=== PATIENT | male | born 1960 | race African-American/Black ===

== ENCOUNTER 2016-08-16 08:17 | Emergency (ER) | payer MEDICAID, OTHER ==
[~2016-08-16] VITALS: Ht 177.8 cm; Wt 67.4 kg
[2016-08-16] MEDS ORDERED: MAALOX/HYOSCYAMINE/LIDOCAINE 45 ML BOTTLE PO ONE (09:30)
[2016-08-16] MEDS ORDERED: SODIUM CHLORIDE 0.9% 1,000ML IVBOLUS ONE (09:30)
[2016-08-16] MEDS ORDERED: METOCLOPRAMIDE 5 MG/ML, 2ML IVPush ONE (09:30)
[2016-08-16] MEDS ORDERED: FAMOTIDINE 20 MG/2 ML IVP ONE (09:30)
[2016-08-16] MEDS ORDERED: DIPHENHYDRAMINE 50 MG/ML, 1ML IVPush ONE (09:30)
[2016-08-16] MEDS ORDERED: SODIUM CHLORIDE FLUSH 10ML SYR IVF ONE (09:30)
[2016-08-16] MEDS ORDERED: MORPHINE SULFATE 4 MG/ML, 1ML IVPush PRN (09:30)
[2016-08-16] MEDS ORDERED: METOCLOPRAMIDE 5 MG/ML, 2ML ONE (09:32)
[2016-08-16] MEDS ORDERED: MORPHINE SULFATE 4 MG/ML, 1ML ONE (09:32)
[2016-08-16] MEDS ORDERED: FAMOTIDINE 20 MG/2 ML ONE (09:32)
[2016-08-16] MEDS ORDERED: MAALOX/HYOSCYAMINE/LIDOCAINE 45 ML BOTTLE ONE (09:32)
[2016-08-16] MEDS ORDERED: DIPHENHYDRAMINE 50 MG/ML, 1ML ONE (09:32)
[2016-08-16 10:01] LABS: ASPARTATE AMINO TRANSFERASE 12 U/L (15-37); BLOOD UREA NITROGEN 18 mg/dL (7-18)
[2016-08-16 10:07] LABS: IS PT STATUS REG ER OR PRE ER? YES
[2016-08-16 10:57] VITALS: BP 136/95
== END 2016-08-16 11:00 | disposition home or self-care (01) ==
LOC: ED 10:23
DX: K25.7 Chronic gastric ulcer without hemorrhage or perforation (principal); K29.00 Acute gastritis without bleeding; I10 Essential (primary) hypertension
CPT/HCPCS: 36415; 80053; 83690; 84484; 85025; 93005; 96374; 96375; 99285; J1200; J2765; J7030; S0028

== ENCOUNTER 2017-08-30 09:23 | Inpatient (IN) | payer MEDICAID ==
[~2017-08-30] VITALS: Ht 177.8 cm; Wt 62.7 kg
[2017-08-30] MEDS ORDERED: PANTOPRAZOLE 80 MG in SODIUM CHLORIDE 0.9% 50 ML IVPB ONE (09:34)
[2017-08-30] MEDS ORDERED: OCTREOTIDE 500 MCG in SODIUM CHLORIDE 0.9% 249 ML IV PRN (09:34)
[2017-08-30] MEDS ORDERED: PANTOPRAZOLE 80 MG in SODIUM CHLORIDE 0.9% 100 ML IV SCH (09:34)
[2017-08-30] MEDS ORDERED: METOCLOPRAMIDE 5 MG/ML, 2ML ONE (09:57)
[2017-08-30] MEDS ORDERED: OCTREOTIDE 100MCG/ML, 1ML (0.1MG/ML) IV ONE (10:00)
[2017-08-30] MEDS ORDERED: SODIUM CHLORIDE 0.9% 1,000ML IVBOLUS ONE (10:00)
[2017-08-30] MEDS ORDERED: PLEASE ENTER HEIGHT AND WEIGHT MC SCH (10:00)
[2017-08-30] MEDS ORDERED: CEFTRIAXONE PMX 1GM/50ML 50 ML IV ONE (10:00)
[2017-08-30] MEDS ORDERED: METOCLOPRAMIDE 5 MG/ML, 2ML IVPush ONE (10:00)
[2017-08-30] MEDS ORDERED: SODIUM CHLORIDE FLUSH 10ML SYR IVF ONE ×2 (10:00)
[2017-08-30] MEDS ORDERED: CEFTRIAXONE PMX 1GM/50ML 50 ML ONE (10:03)
[2017-08-30] MEDS ORDERED: HYDROmorphone 2 MG/ML, 1ML ONE (10:04)
[2017-08-30] MEDS: HYDROmorphone 1 MG/ML, 1ML IVPush PRN ×2 (10:13→11:09)
[2017-08-30 10:18] LABS: BASOPHILS # (AUTO) 0.03 x10^3/uL (0-0.1); BASOPHILS % (AUTO) 0 % (0-1); EOSINOPHILS % (AUTO) 0 % (1-7); LYMPHOCYTES # (AUTO) 0.68 x10^3/uL (1-3.4); LYMPHOCYTES % (AUTO) 5 % (22-44); MD NO; MEAN CORPUSCULAR HEMOGLOBIN 31.4 pg (27.5-34.5); MEAN CORPUSCULAR HGB CONC 33.1 g/dL (33.2-36.2); MEAN CORPUSCULAR VOLUME 94.8 fL (81-97); MEAN PLATELET VOLUME 7.6 fL (7.4-10.4); MONOCYTES # (AUTO) 0.54 x10^3/uL (0.2-0.8); MONOCYTES % (AUTO) 4 % (2-9); NEUTROPHILS # (AUTO) 13.74 x10^3/uL (1.8-6.8); NEUTROPHILS % (AUTO) 92 % (42-75); PLATELET COUNT 382 x10^3/uL (130-400); RED BLOOD COUNT 4.53 x10^6/uL (4.38-5.82); RED CELL DISTRIBUTION WIDTH 14.4 % (9.4-14.8)
[2017-08-30 10:27] LABS: INTERNATIONAL NORMALIZED RATIO 1.09 (0.93-1.1); PROTHROMBIN TIME 11.2 Seconds (9.6-11.5)
[2017-08-30 10:30] LABS: ALANINE AMINOTRANSFERASE 15 U/L (12-78); ALBUMIN 2.8 g/dL (3.4-5.0); ANION GAP 9 mmol/L (5-15); CALCIUM 8.9 mg/dL (8.5-10.1); CHLORIDE 101 mmol/L (98-107); CREATININE 1.41 mg/dL (0.7-1.3)
[2017-08-30 10:33] LABS: ALKALINE PHOSPHATASE 65 U/L (45-117); BILIRUBIN,TOTAL 1.4 mg/dL (0.2-1.0); TOTAL PROTEIN 6.6 g/dL (6.4-8.2)
[2017-08-30 10:54] LABS: TROPONIN I < 0.015 ng/mL (0.000-0.045)
[2017-08-30] MEDS ORDERED: LABETALOL 5MG/ML, 20ML IVPush ONE (11:00)
[2017-08-30] MEDS ORDERED: LABETALOL 5MG/ML, 20ML ONE (11:10)
[2017-08-30] MEDS ORDERED: OCTREOTIDE 100MCG/ML, 1ML (0.1MG/ML) ONE (11:39)
[2017-08-30] MEDS ORDERED: hydrALAzine 20 MG/ML, 1ML IVPush PRN (13:00)
[2017-08-30] MEDS ORDERED: ACETAMINOPHEN 325 MG TABLET PO PRN (13:00)
[2017-08-30] MEDS: PANTOPRAZOLE 80 MG in SODIUM CHLORIDE 0.9% 100 ML IV SCH ×2 (13:00→21:58)
[2017-08-30] MEDS ORDERED: morphine SULFATE 10 MG/ML, 1ML IVPush PRN (13:00)
[2017-08-30] MEDS ORDERED: PROCHLORPERAZINE 5 MG/ML, 2ML IV PRN (13:30)
[2017-08-30 13:38] VITALS: BP_SYST 153; BP_SYST 168; BP_DIAS 110; BP_DIAS 111
[2017-08-30] MEDS: NICOTINE 14MG/24 HR PATCH.TD24 TD SCH (13:41)
[2017-08-30 15:12] VITALS: BP 145/102
[2017-08-30] MEDS: SODIUM CHLORIDE 0.9% 1,000 ML IV SCH ×2 (15:13→21:58)
[2017-08-30 18:15] LABS: MICROSCOPIC AUTO
[2017-08-30 18:17] LABS: CULTURE INDICATED? NO
[2017-08-30 18:21] LABS: AMPHETAMINE SCREEN, URINE Positive (Negative); BARBITURATE SCREEN, URINE Negative (Negative); BENZODIAZEPINE SCREEN, URINE Negative (Negative); CANNABINOID SCREEN, URINE Positive (Negative); COCAINE SCREEN, URINE Negative (Negative); METHADONE SCREEN, URINE Negative (Negative); OPIATE SCREEN, URINE Positive (Negative)
[2017-08-30 20:05] VITALS: BP 148/96
[2017-08-31 00:31] VITALS: BP 127/82
[2017-08-31] MEDS: SODIUM CHLORIDE 0.9% 1,000 ML IV SCH ×3 (05:30→22:05)
[2017-08-31 05:50] LABS: ANION GAP 7 mmol/L (5-15); CALCIUM 8.2 mg/dL (8.5-10.1); CHLORIDE 110 mmol/L (98-107); CREATININE 0.99 mg/dL (0.7-1.3)
[2017-08-31 07:06] VITALS: BP 123/81
[2017-08-31 08:13] LABS: CREATININE,URINE RANDOM 81.7 mg/dL
[2017-08-31] MEDS: PANTOPRAZOLE 40 MG IV IVPush SCH ×2 (08:36→22:04)
[2017-08-31 09:54] LABS: BASOPHILS # (AUTO) 0.05 x10^3/uL (0-0.1); BASOPHILS % (AUTO) 1 % (0-1); EOSINOPHILS # (AUTO) 0.01 x10^3/uL (0-0.4); EOSINOPHILS % (AUTO) 0 % (1-7); LYMPHOCYTES # (AUTO) 1.26 x10^3/uL (1-3.4); LYMPHOCYTES % (AUTO) 13 % (22-44); MD NO; MEAN CORPUSCULAR HEMOGLOBIN 32.3 pg (27.5-34.5); MEAN CORPUSCULAR HGB CONC 33.1 g/dL (33.2-36.2); MEAN CORPUSCULAR VOLUME 97.6 fL (81-97); MEAN PLATELET VOLUME 8.1 fL (7.4-10.4); MONOCYTES # (AUTO) 0.75 x10^3/uL (0.2-0.8); MONOCYTES % (AUTO) 8 % (2-9); NEUTROPHILS # (AUTO) 7.78 x10^3/uL (1.8-6.8); NEUTROPHILS % (AUTO) 79 % (42-75); PLATELET COUNT 317 x10^3/uL (130-400); RED BLOOD COUNT 3.54 x10^6/uL (4.38-5.82); RED CELL DISTRIBUTION WIDTH 14.6 % (9.4-14.8)
[2017-08-31 12:43] VITALS: BP 128/80
[2017-08-31] MEDS: NICOTINE 14MG/24 HR PATCH.TD24 TD SCH (14:53)
[2017-08-31 20:01] VITALS: BP 108/75
[2017-09-01 02:02] VITALS: BP 127/74
[2017-09-01 05:31] LABS: BASOPHILS # (AUTO) 0.04 x10^3/uL (0-0.1); BASOPHILS % (AUTO) 1 % (0-1); EOSINOPHILS # (AUTO) 0.11 x10^3/uL (0-0.4); EOSINOPHILS % (AUTO) 2 % (1-7); LYMPHOCYTES # (AUTO) 1.36 x10^3/uL (1-3.4); LYMPHOCYTES % (AUTO) 19 % (22-44); MD NO; MEAN PLATELET VOLUME 7.5 fL (7.4-10.4); MONOCYTES # (AUTO) 0.78 x10^3/uL (0.2-0.8); MONOCYTES % (AUTO) 11 % (2-9); NEUTROPHILS # (AUTO) 4.87 x10^3/uL (1.8-6.8); NEUTROPHILS % (AUTO) 68 % (42-75); PLATELET COUNT 241 x10^3/uL (130-400); RED BLOOD COUNT 2.66 x10^6/uL (4.38-5.82)
[2017-09-01 05:33] LABS: ALBUMIN 2.1 g/dL (3.4-5.0); ANION GAP 5 mmol/L (5-15); CALCIUM 8.1 mg/dL (8.5-10.1); CHLORIDE 113 mmol/L (98-107); CREATININE 0.82 mg/dL (0.7-1.3)
[2017-09-01 07:07] VITALS: BP 131/75
[2017-09-01] MEDS ORDERED: FENTANYL PF 100 MCG/2ML ONE (08:01)
[2017-09-01] MEDS ORDERED: MIDAZOLAM 1 MG/ML, 5ML ONE (08:01)
[2017-09-01] MEDS: SODIUM CHLORIDE 0.9% 1,000 ML IV SCH (09:46)
[2017-09-01] MEDS: PANTOPRAZOLE 40 MG IV IVPush SCH (11:01)
[2017-09-01 19:06] VITALS: BP 120/69
== END 2017-09-01 11:15 | disposition left against medical advice (07) | DRG 377 ==
LOC: ED 12:04 → EDIP 12:05 → ED 12:09 → 4EST 13:11 → UNDODISIN 09-01 11:20
PROVIDERS: ADMIT Internal Medicine; ATTEND Internal Medicine
PROC: 0DJ08ZZ Inspection of Upper Intestinal Tract, Via Natural or Artificial Opening Endoscopic (ICD-10-PCS; principal; 2017-09-01 08:00)
DX: K26.4 Chronic or unspecified duodenal ulcer with hemorrhage (principal); N17.0 Acute kidney failure with tubular necrosis; D62 Acute posthemorrhagic anemia; K29.01 Acute gastritis with bleeding; E88.09 Other disorders of plasma-protein metabolism, not elsewhere classified; K22.2 Esophageal obstruction; E86.9 Volume depletion, unspecified; D18.03 Hemangioma of intra-abdominal structures; D72.829 Elevated white blood cell count, unspecified; K44.9 Diaphragmatic hernia without obstruction or gangrene; F10.21 Alcohol dependence, in remission; F12.90 Cannabis use, unspecified, uncomplicated; I10 Essential (primary) hypertension; K21.0 Gastro-esophageal reflux disease with esophagitis; K59.09 Other constipation; Z59.0 Homelessness; Z86.19 Personal history of other infectious and parasitic diseases; Z87.11 Personal history of peptic ulcer disease; Z91.19 Patient's noncompliance with other medical treatment and regimen
CPT/HCPCS: 36415; 71045; 76700; 80048; 80053; 80307; 81001; 82040; 82570; 83690; 84156; 84443; 84484; 85014; 85018; 85025; 85610; 85730; 86850; 86900; 87040; 93005; 96374; 96375; 96376; J0696; J1170; J2250; J2354; J3010; C9113; J0360; J2270; J2765; J7030; J7050

== ENCOUNTER 2017-09-01 12:56 | Inpatient (IN) | payer MEDICAID ==
[~2017-09-01] VITALS: Ht 180.3 cm; Wt 66.8 kg
[2017-09-01] VITALS (11 sets, daily range): BP systolic 92–134; BP diastolic 57–83
[2017-09-01] MEDS ORDERED: PANTOPRAZOLE 80 MG in SODIUM CHLORIDE 0.9% 100 ML IV SCH (13:18)
[2017-09-01] MEDS ORDERED: SODIUM CHLORIDE 0.9% 1,000 ML IV ONE (13:18)
[2017-09-01] MEDS ORDERED: PANTOPRAZOLE 80 MG in SODIUM CHLORIDE 0.9% 50 ML IVPB ONE (13:18)
[2017-09-01] MEDS ORDERED: SODIUM CHLORIDE FLUSH 10ML SYR IVF ONE (13:30)
[2017-09-01 13:58] LABS: BASOPHILS # (AUTO) 0.02 x10^3/uL (0-0.1); BASOPHILS % (AUTO) 0 % (0-1); EOSINOPHILS # (AUTO) 0.05 x10^3/uL (0-0.4); EOSINOPHILS % (AUTO) 1 % (1-7); LYMPHOCYTES # (AUTO) 1.54 x10^3/uL (1-3.4); LYMPHOCYTES % (AUTO) 18 % (22-44); MD NO; MEAN CORPUSCULAR HEMOGLOBIN 31.9 pg (27.5-34.5); MEAN CORPUSCULAR HGB CONC 32.5 g/dL (33.2-36.2); MEAN CORPUSCULAR VOLUME 98.1 fL (81-97); MEAN PLATELET VOLUME 7.9 fL (7.4-10.4); MONOCYTES # (AUTO) 0.81 x10^3/uL (0.2-0.8); MONOCYTES % (AUTO) 9 % (2-9); NEUTROPHILS # (AUTO) 6.37 x10^3/uL (1.8-6.8); NEUTROPHILS % (AUTO) 73 % (42-75); PLATELET COUNT 226 x10^3/uL (130-400); RED BLOOD COUNT 2.52 x10^6/uL (4.38-5.82); RED CELL DISTRIBUTION WIDTH 14.8 % (9.4-14.8)
[2017-09-01 14:05] LABS: ALBUMIN 2.3 g/dL (3.4-5.0); ANION GAP 6 mmol/L (5-15); CALCIUM 7.7 mg/dL (8.5-10.1); CHLORIDE 108 mmol/L (98-107); INTERNATIONAL NORMALIZED RATIO 1.02 (0.93-1.1); PROTHROMBIN TIME 10.5 Seconds (9.6-11.5)
[2017-09-01 14:09] LABS: ALANINE AMINOTRANSFERASE 15 U/L (12-78); ALKALINE PHOSPHATASE 47 U/L (45-117); BILIRUBIN,TOTAL 0.9 mg/dL (0.2-1.0); CREATININE 0.81 mg/dL (0.7-1.3); TOTAL PROTEIN 5.1 g/dL (6.4-8.2)
[2017-09-01] MEDS ORDERED: SODIUM CHLORIDE FLUSH 10ML SYR IVF PRN (15:30)
[2017-09-01] MEDS ORDERED: ONDANSETRON ODT 4 MG PO PRN (16:00)
[2017-09-01] MEDS ORDERED: PROMETHAZINE 25 MG/ML, 1ML IM PRN (16:00)
[2017-09-01] MEDS ORDERED: ACETAMINOPHEN 325 MG TABLET PO PRN (16:00)
[2017-09-01 16:08] LABS: % IRON SATURATION 81 % (20-55); IRON LEVEL 179 mcg/dL (65-175); TOTAL IRON BINDING CAPACITY 222 mcg/dL (250-450)
[2017-09-01] MEDS ORDERED: ACETAMINOPHEN 325 MG TABLET PO ONE (20:00)
[2017-09-01] MEDS ORDERED: DIPHENHYDRAMINE 50 MG/ML, 1ML IVPush ONE (20:00)
[2017-09-01] MEDS ORDERED: PANTOPRAZOLE 40 MG IV IVPush SCH (21:00)
[2017-09-01] MEDS ORDERED: HEPARIN 1,000 UNITS/ML, 10ML ONE (21:10)
[2017-09-01] MEDS ORDERED: OMNIPAQUE 350 MG/ML, 100ML BOTTLE ONE (22:34)
[2017-09-01] MEDS: SODIUM CHLORIDE 0.9% 1,000 ML IV SCH (23:21)
[2017-09-02] VITALS (8 sets, daily range): BP systolic 115–138; BP diastolic 63–82
[2017-09-02] MEDS: PANTOPRAZOLE 80 MG in SODIUM CHLORIDE 0.9% 100 ML IV SCH ×3 (01:38→22:06)
[2017-09-02 05:33] LABS: BASOPHILS # (AUTO) 0.03 x10^3/uL (0-0.1); BASOPHILS % (AUTO) 0 % (0-1); EOSINOPHILS # (AUTO) 0.12 x10^3/uL (0-0.4); EOSINOPHILS % (AUTO) 1 % (1-7); LYMPHOCYTES # (AUTO) 1.92 x10^3/uL (1-3.4); LYMPHOCYTES % (AUTO) 22 % (22-44); MD NO; MEAN CORPUSCULAR HEMOGLOBIN 31.1 pg (27.5-34.5); MEAN CORPUSCULAR HGB CONC 33.2 g/dL (33.2-36.2); MEAN CORPUSCULAR VOLUME 93.9 fL (81-97); MEAN PLATELET VOLUME 7.9 fL (7.4-10.4); MONOCYTES # (AUTO) 0.83 x10^3/uL (0.2-0.8); MONOCYTES % (AUTO) 10 % (2-9); NEUTROPHILS # (AUTO) 5.77 x10^3/uL (1.8-6.8); NEUTROPHILS % (AUTO) 67 % (42-75); PLATELET COUNT 204 x10^3/uL (130-400); RED BLOOD COUNT 2.93 x10^6/uL (4.38-5.82); RED CELL DISTRIBUTION WIDTH 17.7 % (9.4-14.8)
[2017-09-02 05:48] LABS: CHLORIDE 111 mmol/L (98-107)
[2017-09-02 06:42] LABS: ANION GAP 11 mmol/L (5-15); CALCIUM 8.3 mg/dL (8.5-10.1); CREATININE 0.87 mg/dL (0.7-1.3)
[2017-09-02] MEDS: LORazepam 2 MG/ML, 1ML IVPush PRN ×2 (07:29→17:41)
[2017-09-02] MEDS: SODIUM CHLORIDE 0.9% 1,000 ML IV SCH ×2 (09:16→19:05)
[2017-09-02] MEDS ORDERED: MAGNESIUM SULFATE PMX 2GM/50ML 50 ML IV ONE (17:00)
[2017-09-02] MEDS ORDERED: SODIUM PHOSPHATE 20 MMOL in SODIUM CHLORIDE 0.9% 500 ML IV ONE (17:00)
[2017-09-02] MEDS ORDERED: LORazepam 2 MG/ML, 1ML IVPush PRN (19:00)
== END 2017-09-03 03:00 | disposition left against medical advice (07) | DRG 377 ==
LOC: ED 15:06 → EDIP 15:07 → ED 15:11 → SUATTDRO 15:36 → 4EST 16:38
PROVIDERS: ADMIT Hospitalist; ATTEND Hospitalist
PROC: 30233N1 Transfusion of Nonautologous Red Blood Cells into Peripheral Vein, Percutaneous Approach (ICD-10-PCS; principal; 2017-09-01)
DX: K26.4 Chronic or unspecified duodenal ulcer with hemorrhage (principal); E43 Unspecified severe protein-calorie malnutrition; D62 Acute posthemorrhagic anemia; F17.210 Nicotine dependence, cigarettes, uncomplicated; I10 Essential (primary) hypertension; K20.9 Esophagitis, unspecified; K22.2 Esophageal obstruction; Z68.20 Body mass index [BMI] 20.0-20.9, adult
CPT/HCPCS: 36415; 36430; 74174; 78278; 80048; 80053; 83540; 83550; 83690; 83735; 84100; 85014; 85018; 85025; 85610; 85730; 86850; 86900; 86923; 87338; 93005; 96374; 96375; J1644; Q9967; A9560; C9113; C9898; J1200; J2060; J3475; J7030; J7040; P9016

== ENCOUNTER 2017-09-09 00:05 | Inpatient (IN) | payer MEDICAID ==
[2017-09-09] VITALS (14 sets, daily range): BP systolic 117–156; BP diastolic 79–99
[~2017-09-09] VITALS: Ht 177.8 cm; Wt 66.3 kg
[2017-09-09] MEDS ORDERED: MORPHINE SULFATE 4 MG/ML, 1ML IVPush PRN (02:00)
[2017-09-09] MEDS ORDERED: PROMETHAZINE 25 MG/ML, 1ML IM ONE (02:00)
[2017-09-09] MEDS ORDERED: FAMOTIDINE 20 MG/2 ML IVP ONE (02:00)
[2017-09-09] MEDS ORDERED: SODIUM CHLORIDE FLUSH 10ML SYR IVF ONE (02:00)
[2017-09-09] MEDS ORDERED: PROMETHAZINE 25 MG/ML, 1ML ONE (02:09)
[2017-09-09] MEDS ORDERED: FAMOTIDINE 20 MG/2 ML ONE (02:10)
[2017-09-09] MEDS ORDERED: MORPHINE SULFATE 4 MG/ML, 1ML ONE ×2 (02:10→07:24)
[2017-09-09 02:17] LABS: ALANINE AMINOTRANSFERASE 20 U/L (12-78); ALBUMIN 2.7 g/dL (3.4-5.0); ANION GAP 8 mmol/L (5-15); CALCIUM 9.1 mg/dL (8.5-10.1); CHLORIDE 101 mmol/L (98-107); CREATININE 0.84 mg/dL (0.7-1.3)
[2017-09-09 02:19] LABS: ALKALINE PHOSPHATASE 57 U/L (45-117); BILIRUBIN,TOTAL 0.5 mg/dL (0.2-1.0); TOTAL PROTEIN 6.3 g/dL (6.4-8.2)
[2017-09-09 02:50] LABS: BASOPHILS # (AUTO) 0.09 x10^3/uL (0-0.1); BASOPHILS % (AUTO) 1 % (0-1); EOSINOPHILS # (AUTO) 0.04 x10^3/uL (0-0.4); EOSINOPHILS % (AUTO) 1 % (1-7); LYMPHOCYTES # (AUTO) 1.03 x10^3/uL (1-3.4); LYMPHOCYTES % (AUTO) 11 % (22-44); MD NO; MEAN CORPUSCULAR HGB CONC 32.4 g/dL (33.2-36.2); MEAN CORPUSCULAR VOLUME 95.5 fL (81-97); MONOCYTES % (AUTO) 9 % (2-9); NEUTROPHILS # (AUTO) 7.08 x10^3/uL (1.8-6.8); NEUTROPHILS % (AUTO) 78 % (42-75); PLATELET COUNT 520 x10^3/uL (130-400); RED BLOOD COUNT 1.94 x10^6/uL (4.38-5.82); RED CELL DISTRIBUTION WIDTH 19.1 % (9.4-14.8)
[2017-09-09] MEDS ORDERED: PANTOPRAZOLE 80 MG in SODIUM CHLORIDE 0.9% 100 ML IV SCH ×2 (02:55→04:30)
[2017-09-09] MEDS ORDERED: PANTOPRAZOLE 80 MG in SODIUM CHLORIDE 0.9% 50 ML IVPB ONE (02:55)
[2017-09-09] MEDS ORDERED: ONDANSETRON 2MG/ML, 2ML IVPush PRN (04:30)
[2017-09-09] MEDS ORDERED: morphine SULFATE 10 MG/ML, 1ML IVPush PRN (07:30)
[2017-09-09] MEDS: SODIUM CHLORIDE 0.9% 1,000 ML IV SCH ×2 (12:34→20:43)
[2017-09-09] MEDS: SUCRALFATE 1 GM/10 ML UDC PO SCH ×2 (16:30→20:44)
[2017-09-09] MEDS: PANTOPRAZOLE 40 MG IV IVPush SCH (16:30)
[2017-09-09] MEDS: morphine SULFATE 10 MG/ML, 1ML IVPush PRN (20:43)
[2017-09-10 01:56] VITALS: BP 125/75
[2017-09-10] MEDS: morphine SULFATE 10 MG/ML, 1ML IVPush PRN ×3 (03:41→21:40)
[2017-09-10] MEDS: PANTOPRAZOLE 40 MG IV IVPush SCH ×2 (03:42→17:49)
[2017-09-10] MEDS: SODIUM CHLORIDE 0.9% 1,000 ML IV SCH (04:50)
[2017-09-10 05:38] LABS: ALANINE AMINOTRANSFERASE 16 U/L (12-78); ALBUMIN 2.1 g/dL (3.4-5.0); ANION GAP 7 mmol/L (5-15); CALCIUM 7.3 mg/dL (8.5-10.1); CHLORIDE 114 mmol/L (98-107); CREATININE 0.83 mg/dL (0.7-1.3)
[2017-09-10 05:40] LABS: ALKALINE PHOSPHATASE 51 U/L (45-117); BASOPHILS # (AUTO) 0.05 x10^3/uL (0-0.1); BASOPHILS % (AUTO) 1 % (0-1); BILIRUBIN,TOTAL 0.6 mg/dL (0.2-1.0); EOSINOPHILS # (AUTO) 0.14 x10^3/uL (0-0.4); EOSINOPHILS % (AUTO) 2 % (1-7); LYMPHOCYTES # (AUTO) 1.78 x10^3/uL (1-3.4); LYMPHOCYTES % (AUTO) 25 % (22-44); MD NO; MEAN CORPUSCULAR HEMOGLOBIN 30.8 pg (27.5-34.5); MEAN CORPUSCULAR HGB CONC 33.1 g/dL (33.2-36.2); MONOCYTES # (AUTO) 1.02 x10^3/uL (0.2-0.8); MONOCYTES % (AUTO) 14 % (2-9); NEUTROPHILS # (AUTO) 4.15 x10^3/uL (1.8-6.8); NEUTROPHILS % (AUTO) 58 % (42-75); PLATELET COUNT 404 x10^3/uL (130-400); RED BLOOD COUNT 2.58 x10^6/uL (4.38-5.82); RED CELL DISTRIBUTION WIDTH 16.7 % (9.4-14.8); TOTAL PROTEIN 4.9 g/dL (6.4-8.2)
[2017-09-10 09:00] VITALS: BP 138/85
[2017-09-10] MEDS: SUCRALFATE 1 GM/10 ML UDC PO SCH ×4 (10:14→21:40)
[2017-09-10] MEDS: AMOXICILLIN 500 MG CAPSULE PO SCH ×2 (10:14→21:40)
[2017-09-10] MEDS: CLARITHROMYCIN 500 MG TABLET PO SCH ×2 (10:14→21:40)
[2017-09-10 15:37] VITALS: BP 149/71
[2017-09-10 19:25] VITALS: BP 140/75
[2017-09-11 01:45] VITALS: BP 148/84
[2017-09-11] MEDS: morphine SULFATE 10 MG/ML, 1ML IVPush PRN (03:21)
[2017-09-11] MEDS: PANTOPRAZOLE 40 MG IV IVPush SCH (04:59)
[2017-09-11 05:49] LABS: BASOPHILS # (AUTO) 0.01 x10^3/uL (0-0.1); BASOPHILS % (AUTO) 0 % (0-1); EOSINOPHILS # (AUTO) 0.17 x10^3/uL (0-0.4); EOSINOPHILS % (AUTO) 2 % (1-7); LYMPHOCYTES % (AUTO) 12 % (22-44); MD NO; MEAN CORPUSCULAR HEMOGLOBIN 30.6 pg (27.5-34.5); MEAN CORPUSCULAR VOLUME 92.8 fL (81-97); MEAN PLATELET VOLUME 6.9 fL (7.4-10.4); MONOCYTES # (AUTO) 1.16 x10^3/uL (0.2-0.8); MONOCYTES % (AUTO) 10 % (2-9); NEUTROPHILS % (AUTO) 76 % (42-75); PLATELET COUNT 417 x10^3/uL (130-400); RED BLOOD COUNT 2.44 x10^6/uL (4.38-5.82); RED CELL DISTRIBUTION WIDTH 16.6 % (9.4-14.8)
[2017-09-11] MEDS ORDERED: ACETAMINOPHEN 325 MG TABLET PO PRN (07:30)
[2017-09-11] MEDS ORDERED: MAALOX/HYOSCYAMINE/LIDOCAINE 45 ML BTL PO PRN (07:30)
[2017-09-11 07:41] VITALS: BP 129/83
[2017-09-11] MEDS: CLARITHROMYCIN 500 MG TABLET PO SCH (09:37)
[2017-09-11] MEDS: AMOXICILLIN 500 MG CAPSULE PO SCH (09:37)
[2017-09-11] MEDS: SUCRALFATE 1 GM/10 ML UDC PO SCH ×2 (09:37→11:00)
[2017-09-11] MEDS ORDERED: AMOX-291 PO (11:47)
[2017-09-11] MEDS ORDERED: PANT40TA3 PO (11:47)
[2017-09-11] MEDS ORDERED: SUCR1ORA5 PO (11:47)
[2017-09-11] MEDS ORDERED: CLAR500T PO (11:47)
== END 2017-09-11 12:33 | disposition left against medical advice (07) | DRG 811 ==
LOC: ED 01:50 → EDIP 03:00 → 4EST 04:00
PROVIDERS: ADMIT Hospitalist; ATTEND Hospitalist
PROC: 30233N1 Transfusion of Nonautologous Red Blood Cells into Peripheral Vein, Percutaneous Approach (ICD-10-PCS; principal; 2017-09-09)
DX: D62 Acute posthemorrhagic anemia (principal); E43 Unspecified severe protein-calorie malnutrition; K27.4 Chronic or unspecified peptic ulcer, site unspecified, with hemorrhage; B96.81 Helicobacter pylori [H. pylori] as the cause of diseases classified elsewhere; I10 Essential (primary) hypertension; Z87.11 Personal history of peptic ulcer disease; Z91.19 Patient's noncompliance with other medical treatment and regimen; Z87.891 Personal history of nicotine dependence; Z68.21 Body mass index [BMI] 21.0-21.9, adult; K20.9 Esophagitis, unspecified; K22.2 Esophageal obstruction
CPT/HCPCS: 36415; 36430; 80053; 83690; 83735; 84100; 85014; 85018; 85025; 86850; 86900; 86923; 93005; 96372; 96374; 96375; J2550; C9113; J2270; J7030; P9016; S0028

== ENCOUNTER 2017-10-21 08:40 | Emergency (ER) | payer MEDICAID ==
[~2017-10-21] VITALS: Ht 177.8 cm; Wt 61.5 kg
[~2017-10-21 08:40] MED LIST: AMOX-291 PO; CLAR500T PO; PANT40TA3 PO; SUCR1ORA5 PO
[2017-10-21] MEDS ORDERED: MORPHINE SULFATE 4 MG/ML, 1ML IVPush PRN (09:00)
[2017-10-21] MEDS ORDERED: SODIUM CHLORIDE FLUSH 10ML SYR IVF ONE (09:00)
[2017-10-21] MEDS ORDERED: MAALOX/HYOSCYAMINE/LIDOCAINE 45 ML BTL PO ONE (09:00)
[2017-10-21] MEDS ORDERED: PANTOPRAZOLE 40 MG IV IVPush ONE (09:00)
[2017-10-21] MEDS ORDERED: SODIUM CHLORIDE 0.9% 1,000ML IVBOLUS ONE (09:00)
[2017-10-21] MEDS ORDERED: MAALOX/HYOSCYAMINE/LIDOCAINE 45 ML BTL ONE (09:14)
[2017-10-21] MEDS ORDERED: MORPHINE SULFATE 4 MG/ML, 1ML ONE (09:14)
[2017-10-21] MEDS ORDERED: PANTOPRAZOLE 40 MG IV ONE (09:14)
[2017-10-21 09:22] LABS: MEAN CORPUSCULAR HEMOGLOBIN 25.7 pg (27.5-34.5); MEAN CORPUSCULAR HGB CONC 31.2 g/dL (33.2-36.2); MEAN CORPUSCULAR VOLUME 82.5 fL (81-97); MEAN PLATELET VOLUME 7.6 fL (7.4-10.4); PLATELET COUNT 493 x10^3/uL (130-400); RED BLOOD COUNT 4.55 x10^6/uL (4.38-5.82); RED CELL DISTRIBUTION WIDTH 22.2 % (9.4-14.8)
[2017-10-21] MEDS ORDERED: METOCLOPRAMIDE 5 MG/ML, 2ML IVPush ONE (09:30)
[2017-10-21] MEDS ORDERED: DIPHENHYDRAMINE 50 MG/ML, 1ML IVPush ONE (09:30)
[2017-10-21] MEDS ORDERED: METOCLOPRAMIDE 5 MG/ML, 2ML ONE (09:31)
[2017-10-21] MEDS ORDERED: DIPHENHYDRAMINE 50 MG/ML, 1ML ONE (09:31)
[2017-10-21 09:33] LABS: ALBUMIN 3.2 g/dL (3.4-5.0); ANION GAP 8 mmol/L (5-15); CALCIUM 9.5 mg/dL (8.5-10.1); CHLORIDE 104 mmol/L (98-107)
[2017-10-21 09:37] LABS: ALANINE AMINOTRANSFERASE 17 U/L (12-78); ALKALINE PHOSPHATASE 76 U/L (45-117); BILIRUBIN,TOTAL 0.5 mg/dL (0.2-1.0); CREATININE 1.22 mg/dL (0.7-1.3); TOTAL PROTEIN 7.6 g/dL (6.4-8.2)
[2017-10-21 09:44] LABS: BASOPHILS # (AUTO) 0.02 x10^3/uL (0-0.1); BASOPHILS % (AUTO) 0 % (0-1); EOSINOPHILS # (AUTO) 0.01 x10^3/uL (0-0.4); EOSINOPHILS % (AUTO) 0 % (1-7); LYMPHOCYTES # (AUTO) 0.82 x10^3/uL (1-3.4); LYMPHOCYTES % (AUTO) 6 % (22-44); MD SCAN; MONOCYTES # (AUTO) 0.63 x10^3/uL (0.2-0.8); MONOCYTES % (AUTO) 5 % (2-9); NEUTROPHILS # (AUTO) 12.56 x10^3/uL (1.8-6.8); NEUTROPHILS % (AUTO) 90 % (42-75)
[2017-10-21 12:50] VITALS: BP 160/107
== END 2017-10-21 12:57 | disposition home or self-care (01) ==
LOC: ED 12:51
DX: K29.20 Alcoholic gastritis without bleeding (principal); F10.10 Alcohol abuse, uncomplicated; K29.00 Acute gastritis without bleeding; B96.81 Helicobacter pylori [H. pylori] as the cause of diseases classified elsewhere; I10 Essential (primary) hypertension; Z91.14 Patient's other noncompliance with medication regimen
CPT/HCPCS: 36415; 80053; 83690; 85025; 96361; 96374; 96375; 99284; C9113; J1200; J2765; J7030

== ENCOUNTER 2017-11-01 13:32 | Emergency (ER) | payer MEDICAID ==
[~2017-11-01] VITALS: Ht 175.3 cm; Wt 54.3 kg
[2017-11-01 13:45] VITALS: BP 142/105
[2017-11-01] MEDS ORDERED: MAALOX/HYOSCYAMINE/LIDOCAINE 45 ML BTL ONE (14:21)
[2017-11-01] MEDS ORDERED: OXYcodone/APAP 5/325MG TABLET ONE (14:21)
[2017-11-01] MEDS ORDERED: MAALOX/HYOSCYAMINE/LIDOCAINE 45 ML BTL PO ONE (14:30)
[2017-11-01] MEDS ORDERED: OXYcodone/APAP 5/325MG TABLET PO ONE (14:30)
== END 2017-11-01 14:55 | disposition home or self-care (01) ==
LOC: ED 14:15
DX: R10.13 Epigastric pain (principal); I10 Essential (primary) hypertension; F17.200 Nicotine dependence, unspecified, uncomplicated
CPT/HCPCS: 99283

== ENCOUNTER 2017-11-10 07:26 | Inpatient (IN) | payer MEDICAID ==
[~2017-11-10] VITALS: Ht 172.7 cm; Wt 61.0 kg
[2017-11-10] VITALS (7 sets, daily range): BP systolic 128–171; BP diastolic 84–115
[2017-11-10] MEDS ORDERED: MORPHINE SULFATE 4 MG/ML, 1ML ONE (08:08)
[2017-11-10] MEDS ORDERED: ONDANSETRON 2MG/ML, 2ML ONE (08:08)
[2017-11-10] MEDS ORDERED: SODIUM CHLORIDE 0.9% 1,000ML IVBOLUS ONE (08:30)
[2017-11-10] MEDS ORDERED: SODIUM CHLORIDE FLUSH 10ML SYR IVF ONE (08:30)
[2017-11-10] MEDS ORDERED: MORPHINE SULFATE 4 MG/ML, 1ML IVPush PRN (08:30)
[2017-11-10] MEDS ORDERED: ONDANSETRON 2MG/ML, 2ML IVPush ONE (08:30)
[2017-11-10 08:48] LABS: MEAN CORPUSCULAR HEMOGLOBIN 25.4 pg (27.5-34.5); MEAN CORPUSCULAR HGB CONC 31.4 g/dL (33.2-36.2); MEAN CORPUSCULAR VOLUME 80.9 fL (81-97); MEAN PLATELET VOLUME 6.9 fL (7.4-10.4); PLATELET COUNT 474 x10^3/uL (130-400); RED BLOOD COUNT 4.15 x10^6/uL (4.38-5.82); RED CELL DISTRIBUTION WIDTH 22.3 % (9.4-14.8)
[2017-11-10 08:59] LABS: ALANINE AMINOTRANSFERASE 42 U/L (12-78); ALBUMIN 3.4 g/dL (3.4-5.0); ANION GAP 8 mmol/L (5-15); CALCIUM 8.3 mg/dL (8.5-10.1); CHLORIDE 103 mmol/L (98-107); CREATININE 0.97 mg/dL (0.7-1.3)
[2017-11-10 09:02] LABS: ALKALINE PHOSPHATASE 111 U/L (45-117); BILIRUBIN,TOTAL 0.3 mg/dL (0.2-1.0); TOTAL PROTEIN 7.8 g/dL (6.4-8.2)
[2017-11-10 09:04] LABS: BASOPHILS # (AUTO) 0.05 x10^3/uL (0-0.1); BASOPHILS % (AUTO) 1 % (0-1); EOSINOPHILS # (AUTO) 0.03 x10^3/uL (0-0.4); EOSINOPHILS % (AUTO) 0 % (1-7); LYMPHOCYTES % (AUTO) 9 % (22-44); MD SCAN; MONOCYTES # (AUTO) 0.61 x10^3/uL (0.2-0.8); MONOCYTES % (AUTO) 6 % (2-9); NEUTROPHILS # (AUTO) 8.74 x10^3/uL (1.8-6.8); NEUTROPHILS % (AUTO) 85 % (42-75); TROPONIN I < 0.015 ng/mL (0.000-0.045)
[2017-11-10] MEDS ORDERED: MAALOX/HYOSCYAMINE/LIDOCAINE 45 ML BTL ONE (09:29)
[2017-11-10] MEDS ORDERED: LORazepam 2 MG/ML, 1ML ONE (09:29)
[2017-11-10] MEDS ORDERED: MAALOX/HYOSCYAMINE/LIDOCAINE 45 ML BTL PO ONE (10:30)
[2017-11-10] MEDS ORDERED: LORazepam 2 MG/ML, 1ML IVPush ONE (10:30)
[2017-11-10] MEDS ORDERED: NS + 40MEQ KCL 1,000 ML IV ONE ×2 (10:32→10:58)
[2017-11-10] MEDS ORDERED: METOPROLOL 1 MG/ML, 5ML IVPush SCH (10:33)
[2017-11-10] MEDS ORDERED: METOPROLOL 1 MG/ML, 5ML ONE (10:39)
[2017-11-10] MEDS ORDERED: OMNIPAQUE 350 MG/ML, 100ML BOTTLE ONE (11:21)
[2017-11-10] MEDS ORDERED: LORazepam 2 MG/ML, 1ML IVPush PRN (11:30)
[2017-11-10] MEDS: ENALAPRILAT 1.25 MG/ML, 2ML IVPush SCH ×3 (12:44→20:20)
[2017-11-10] MEDS: PANTOPRAZOLE 40 MG IV IVPush SCH ×2 (12:44→23:17)
[2017-11-10] MEDS ORDERED: LIDOCAINE GEL 2%, 5ML ONE (13:00)
[2017-11-10] MEDS ORDERED: BENZOCAINE 20% SPRAY 0.5ML ONE (13:03)
[2017-11-10 13:05] LABS: AMPHETAMINE SCREEN, URINE Negative (Negative); BARBITURATE SCREEN, URINE Negative (Negative); BENZODIAZEPINE SCREEN, URINE Negative (Negative); CANNABINOID SCREEN, URINE Positive (Negative); COCAINE SCREEN, URINE Negative (Negative); METHADONE SCREEN, URINE Negative (Negative); OPIATE SCREEN, URINE Positive (Negative)
[2017-11-10 13:42] LABS: FREE T4 (FREE THYROXINE) 1.15 ng/dL (0.76-1.46); THYROID STIMULATING HORMONE 1.21 mIU/L (0.358-3.740)
[2017-11-10] MEDS: SODIUM CHLORIDE 0.9% 1,000 ML IV SCH (14:48)
[2017-11-10] MEDS: POTASSIUM CHLORIDE 40 MEQ in SODIUM CHLORIDE 0.9% 500 ML IV SCH ×2 (15:51→21:05)
[2017-11-10] MEDS ORDERED: hydrALAzine 20 MG/ML, 1ML ONE (18:41)
[2017-11-10] MEDS ORDERED: hydrALAzine 20 MG/ML, 1ML IV ONE (19:00)
[2017-11-10] MEDS: ONDANSETRON 2MG/ML, 2ML IVPush PRN (20:20)
[2017-11-11] VITALS (7 sets, daily range): BP systolic 130–151; BP diastolic 82–96
[2017-11-11] MEDS: ENALAPRILAT 1.25 MG/ML, 2ML IVPush SCH ×7 (04:46→20:40)
[2017-11-11 05:33] LABS: BASOPHILS # (AUTO) 0.01 x10^3/uL (0-0.1); BASOPHILS % (AUTO) 0 % (0-1); EOSINOPHILS % (AUTO) 1 % (1-7); LYMPHOCYTES # (AUTO) 1.43 x10^3/uL (1-3.4); LYMPHOCYTES % (AUTO) 10 % (22-44); MD NO; MEAN CORPUSCULAR HEMOGLOBIN 25.2 pg (27.5-34.5); MEAN CORPUSCULAR HGB CONC 31.3 g/dL (33.2-36.2); MEAN CORPUSCULAR VOLUME 80.6 fL (81-97); MEAN PLATELET VOLUME 7.3 fL (7.4-10.4); MONOCYTES # (AUTO) 0.91 x10^3/uL (0.2-0.8); MONOCYTES % (AUTO) 6 % (2-9); NEUTROPHILS # (AUTO) 11.96 x10^3/uL (1.8-6.8); NEUTROPHILS % (AUTO) 83 % (42-75); PLATELET COUNT 446 x10^3/uL (130-400); RED BLOOD COUNT 3.72 x10^6/uL (4.38-5.82); RED CELL DISTRIBUTION WIDTH 22.9 % (9.4-14.8)
[2017-11-11 05:43] LABS: ALANINE AMINOTRANSFERASE 28 U/L (12-78); ALBUMIN 2.5 g/dL (3.4-5.0); ANION GAP 6 mmol/L (5-15); CALCIUM 7.8 mg/dL (8.5-10.1); CHLORIDE 109 mmol/L (98-107); CREATININE 0.71 mg/dL (0.7-1.3)
[2017-11-11 05:45] LABS: ALKALINE PHOSPHATASE 82 U/L (45-117); BILIRUBIN,TOTAL 0.6 mg/dL (0.2-1.0); TOTAL PROTEIN 6.3 g/dL (6.4-8.2)
[2017-11-11] MEDS: ONDANSETRON 2MG/ML, 2ML IVPush PRN (06:39)
[2017-11-11] MEDS: SODIUM CHLORIDE 0.9% 1,000 ML IV SCH (08:27)
[2017-11-11] MEDS: PANTOPRAZOLE 40 MG IV IVPush SCH ×2 (08:27→20:37)
[2017-11-11] MEDS: DEXTROSE 5% 1,000 ML IV SCH ×2 (10:42→20:38)
[2017-11-11] MEDS ORDERED: BENZOCAINE AEROSOL SPRAY 20%, 60ML TP PRN ×2 (11:00→20:00)
[2017-11-11] MEDS ORDERED: MAGNESIUM SULFATE 4 GM in SODIUM CHLORIDE 0.9% 100 ML IV ONE (19:00)
[2017-11-11] MEDS ORDERED: MAGNESIUM SULFATE PMX 4GM/100M 100 ML IV ONE (19:00)
[2017-11-11] MEDS ORDERED: POTASSIUM PHOSPHATE 44 MEQ in SODIUM CHLORIDE 0.9% 500 ML IV ONE (19:00)
[2017-11-11] MEDS: morphine SULFATE 10 MG/ML, 1ML IVPush PRN ×2 (19:27→22:42)
[2017-11-12] MEDS: ENALAPRILAT 1.25 MG/ML, 2ML IVPush SCH ×4 (00:05→12:00)
[2017-11-12] MEDS: morphine SULFATE 10 MG/ML, 1ML IVPush PRN ×2 (02:42→08:54)
[2017-11-12 04:35] VITALS: BP 126/68
[2017-11-12 06:20] LABS: MEAN CORPUSCULAR HEMOGLOBIN 25.2 pg (27.5-34.5); MEAN CORPUSCULAR HGB CONC 31.1 g/dL (33.2-36.2); MEAN PLATELET VOLUME 7.2 fL (7.4-10.4); PLATELET COUNT 379 x10^3/uL (130-400); RED BLOOD COUNT 3.19 x10^6/uL (4.38-5.82); RED CELL DISTRIBUTION WIDTH 23.1 % (9.4-14.8)
[2017-11-12 06:28] LABS: ALANINE AMINOTRANSFERASE 19 U/L (12-78); ALBUMIN 2.2 g/dL (3.4-5.0); ANION GAP 5 mmol/L (5-15); CHLORIDE 106 mmol/L (98-107)
[2017-11-12 06:31] LABS: ALKALINE PHOSPHATASE 57 U/L (45-117); BILIRUBIN,TOTAL 0.6 mg/dL (0.2-1.0); CREATININE 0.65 mg/dL (0.7-1.3); TOTAL PROTEIN 5.6 g/dL (6.4-8.2)
[2017-11-12 06:43] LABS: BASOPHILS # (AUTO) 0.02 x10^3/uL (0-0.1); BASOPHILS % (AUTO) 0 % (0-1); EOSINOPHILS # (AUTO) 0.05 x10^3/uL (0-0.4); EOSINOPHILS % (AUTO) 1 % (1-7); LYMPHOCYTES # (AUTO) 1.62 x10^3/uL (1-3.4); LYMPHOCYTES % (AUTO) 16 % (22-44); MD SCAN; MONOCYTES % (AUTO) 7 % (2-9); NEUTROPHILS # (AUTO) 7.52 x10^3/uL (1.8-6.8); NEUTROPHILS % (AUTO) 76 % (42-75)
[2017-11-12 08:53] VITALS: BP 135/89
[2017-11-12] MEDS: PANTOPRAZOLE 40 MG IV IVPush SCH (08:54)
[2017-11-12] MEDS ORDERED: SUCRALFATE 1 GM/10 ML UDC PO SCH (11:30)
[2017-11-12] MEDS ORDERED: PANTOPRAZOLE GRAN. PKT 40 MG PO SCH (11:30)
[2017-11-12 12:22] VITALS: BP 127/82
== END 2017-11-12 13:09 | disposition left against medical advice (07) | DRG 381 ==
LOC: ED 08:57 → EDIP 10:31 → 4EST 11:36 → 4WST 13:59 → 4EST 11-11 10:01
PROVIDERS: ADMIT Hospitalist; ATTEND Internal Medicine
DX: K31.1 Adult hypertrophic pyloric stenosis (principal); E87.0 Hyperosmolality and hypernatremia; K25.9 Gastric ulcer, unspecified as acute or chronic, without hemorrhage or perforation; K22.2 Esophageal obstruction; I16.0 Hypertensive urgency; K44.9 Diaphragmatic hernia without obstruction or gangrene; E87.6 Hypokalemia; I10 Essential (primary) hypertension; K21.0 Gastro-esophageal reflux disease with esophagitis; E83.39 Other disorders of phosphorus metabolism; D50.9 Iron deficiency anemia, unspecified; E83.42 Hypomagnesemia; Z87.11 Personal history of peptic ulcer disease; Z59.0 Homelessness; Z87.891 Personal history of nicotine dependence; Z91.14 Patient's other noncompliance with medication regimen; Z79.899 Other long term (current) drug therapy; Z79.1 Long term (current) use of non-steroidal anti-inflammatories (NSAID); Z53.21 Procedure and treatment not carried out due to patient leaving prior to being seen by health care provider
CPT/HCPCS: 36415; 71045; 71275; 74018; 74175; 74241; 74250; 74340; 80053; 80307; 83540; 83550; 83605; 83690; 83735; 84100; 84439; 84443; 84484; 85025; 93005; 96374; 96375; 99291; J2405; J3480; J7070; Q9967; C9113; J0360; J2060; J2270; J3475; J7030; J7040

== ENCOUNTER 2018-02-10 10:37 | Inpatient (IN) | payer OTHER, MEDICAID ==
[~2018-02-10] VITALS: Ht 177.8 cm; Wt 48.4 kg
[2018-02-10] MEDS ORDERED: SODIUM CHLORIDE 0.9% 1,000 ML IV ONE ×2 (10:43→14:17)
[2018-02-10] MEDS ORDERED: SODIUM CHLORIDE FLUSH 10ML SYR IVF ONE (11:00)
[2018-02-10] MEDS ORDERED: PLEASE ENTER HEIGHT AND WEIGHT MC SCH (11:00)
[2018-02-10] MEDS ORDERED: SODIUM CHLORIDE 0.9% 1,000ML IVBOLUS ONE (11:00)
[2018-02-10 11:24] LABS: INTERNATIONAL NORMALIZED RATIO 1.06 (0.93-1.1)
[2018-02-10 11:28] LABS: MEAN CORPUSCULAR HEMOGLOBIN 25.5 pg (27.5-34.5); MEAN CORPUSCULAR HGB CONC 31.5 g/dL (33.2-36.2); MEAN CORPUSCULAR VOLUME 80.9 fL (81-97); MEAN PLATELET VOLUME 8.7 fL (7.4-10.4); PLATELET COUNT 284 x10^3/uL (130-400); RED BLOOD COUNT 6.13 x10^6/uL (4.38-5.82); RED CELL DISTRIBUTION WIDTH 23.3 % (9.4-14.8)
[2018-02-10 11:45] LABS: BASOPHILS # (AUTO) 0.04 x10^3/uL (0-0.1); BASOPHILS % (AUTO) 1 % (0-1); EOSINOPHILS % (AUTO) 0 % (1-7); LYMPHOCYTES # (AUTO) 0.61 x10^3/uL (1-3.4); LYMPHOCYTES % (AUTO) 9 % (22-44); MD SCAN; MONOCYTES # (AUTO) 0.21 x10^3/uL (0.2-0.8); MONOCYTES % (AUTO) 3 % (2-9); NEUTROPHILS # (AUTO) 6.36 x10^3/uL (1.8-6.8); NEUTROPHILS % (AUTO) 88 % (42-75)
[2018-02-10] MEDS ORDERED: ONDA4TAB13 SL (11:49)
[2018-02-10] MEDS ORDERED: HYDR12.58 PO (11:49)
[2018-02-10] MEDS ORDERED: CALC625T13 PO (11:49)
[2018-02-10] MEDS ORDERED: LORazepam 1MG TABLET ONE (11:50)
[2018-02-10 11:56] LABS: CHLORIDE 113 mmol/L (98-107)
[2018-02-10] MEDS ORDERED: HYDROmorphone 2 MG/ML, 1ML ONE ×2 (11:57→13:50)
[2018-02-10] MEDS ORDERED: ONDANSETRON 2MG/ML, 2ML ONE ×2 (11:58→16:03)
[2018-02-10] MEDS ORDERED: ONDANSETRON 2MG/ML, 2ML IVPush ONE (12:00)
[2018-02-10] MEDS: HYDROmorphone 2 MG/ML, 1ML IVPush PRN ×2 (12:02→13:53)
[2018-02-10 12:04] LABS: ANION GAP 12 mmol/L (5-15); BILIRUBIN,TOTAL 1.1 mg/dL (0.2-1.0); CALCIUM 9.8 mg/dL (8.5-10.1)
[2018-02-10 12:05] LABS: ALANINE AMINOTRANSFERASE 29 U/L (12-78); ALBUMIN 3.7 g/dL (3.4-5.0); ALKALINE PHOSPHATASE 72 U/L (45-117); TOTAL PROTEIN 7.8 g/dL (6.4-8.2)
[2018-02-10] MEDS ORDERED: DOCUSATE 100 MG CAPSULE PO PRN (14:30)
[2018-02-10] MEDS ORDERED: SODIUM CHLORIDE FLUSH 10ML SYR IVF PRN (14:30)
[2018-02-10] MEDS ORDERED: hydrALAzine 20 MG/ML, 1ML IVPush PRN (14:30)
[2018-02-10] MEDS ORDERED: LABETALOL 5MG/ML, 20ML IVPush PRN (14:30)
[2018-02-10] MEDS ORDERED: ONDANSETRON ODT 4 MG PO PRN (14:30)
[2018-02-10] MEDS ORDERED: DEXTROSE 5% 1,000 ML IV SCH (15:00)
[2018-02-10 15:04] LABS: CREATINE KINASE, TOTAL 49 U/L (39-308)
[2018-02-10] MEDS: ONDANSETRON 2MG/ML, 2ML IVPush PRN (16:10)
[2018-02-10] MEDS ORDERED: OMNIPAQUE 350 MG/ML, 150 ML BOTTLE ONE (16:53)
[2018-02-10 17:34] VITALS: BP 147/88
[2018-02-10] MEDS: DEXTROSE 5% 1,000 ML IV SCH ×2 (18:02→20:10)
[2018-02-10 22:26] LABS: MICROSCOPIC NOT IND
[2018-02-10 22:30] LABS: CULTURE INDICATED? NO
[2018-02-10 22:33] LABS: POTASSIUM,URINE RANDOM 57 mmol/L; PROTEIN/CREATININE RATIO,URINE 413 (0-200); SODIUM,URINE RANDOM 30 mmol/L; TOTAL PROTEIN,URINE RANDOM 43 mg/dL (0-12)
[2018-02-10 22:37] LABS: CHLORIDE,URINE RANDOM < 10 mmol/L
[2018-02-10 22:53] LABS: AMPHETAMINE SCREEN, URINE Negative (Negative); BARBITURATE SCREEN, URINE Negative (Negative); BENZODIAZEPINE SCREEN, URINE Negative (Negative); CANNABINOID SCREEN, URINE Negative (Negative); COCAINE SCREEN, URINE Negative (Negative); METHADONE SCREEN, URINE Negative (Negative); OPIATE SCREEN, URINE Positive (Negative)
[2018-02-10 22:56] LABS: OSMOLALITY,URINE 719 mOsm/kg (500-850)
[2018-02-11] MEDS: morphine SULFATE 10 MG/ML, 1ML IVPush PRN ×2 (03:53→05:20)
[2018-02-11 04:28] LABS: MEAN CORPUSCULAR HEMOGLOBIN 25.2 pg (27.5-34.5); MEAN CORPUSCULAR HGB CONC 31.4 g/dL (33.2-36.2); MEAN CORPUSCULAR VOLUME 80.3 fL (81-97); MEAN PLATELET VOLUME 8.7 fL (7.4-10.4); PLATELET COUNT 233 x10^3/uL (130-400); RED BLOOD COUNT 5.18 x10^6/uL (4.38-5.82); RED CELL DISTRIBUTION WIDTH 23.3 % (9.4-14.8)
[2018-02-11 04:35] LABS: ALBUMIN 3.2 g/dL (3.4-5.0); ANION GAP 9 mmol/L (5-15); CALCIUM 8.8 mg/dL (8.5-10.1); CHLORIDE 113 mmol/L (98-107)
[2018-02-11 04:38] LABS: ALANINE AMINOTRANSFERASE 26 U/L (12-78); ALKALINE PHOSPHATASE 58 U/L (45-117); BILIRUBIN,TOTAL 0.9 mg/dL (0.2-1.0); CREATININE 2.69 mg/dL (0.7-1.3); TOTAL PROTEIN 6.5 g/dL (6.4-8.2)
[2018-02-11 04:42] LABS: HEMOGLOBIN A1C 5.8 % (4.2-6.3)
[2018-02-11] MEDS: ONDANSETRON 2MG/ML, 2ML IVPush PRN (05:20)
[2018-02-11] MEDS: DEXTROSE 5% 1,000 ML IV SCH (05:45)
[2018-02-11 06:04] LABS: BASOPHILS % (AUTO) 0 % (0-1); EOSINOPHILS % (AUTO) 0 % (1-7); LYMPHOCYTES # (AUTO) 0.66 x10^3/uL (1-3.4); LYMPHOCYTES % (AUTO) 11 % (22-44); MD SCAN; MONOCYTES # (AUTO) 0.11 x10^3/uL (0.2-0.8); MONOCYTES % (AUTO) 2 % (2-9); NEUTROPHILS # (AUTO) 5.38 x10^3/uL (1.8-6.8); NEUTROPHILS % (AUTO) 88 % (42-75)
[2018-02-11] MEDS: PANTOPRAZOLE 40 MG IV IVPush SCH (08:05)
[2018-02-11] MEDS ORDERED: ATROPINE SYRINGE 0.1 MG/ML, 10ML ONE (09:07)
[2018-02-11] MEDS ORDERED: MORPHINE SULFATE 4 MG/ML, 1ML ONE (09:21)
[2018-02-11] MEDS ORDERED: morphine SULFATE 10 MG/ML, 1ML IVPush PRN (09:30)
[2018-02-11] MEDS ORDERED: ATROPINE SYRINGE 0.1 MG/ML, 10ML IVPush SCH (09:30)
[2018-02-11 09:45] LABS: TROPONIN I < 0.015 ng/mL (0.000-0.045)
[2018-02-11] MEDS ORDERED: DOPAMINE/D5W PMX 250 ML IV SCH (12:00)
[2018-02-11] MEDS ORDERED: PROPOFOL 10 MG/ML, 20ML ONE (12:47)
[2018-02-11] MEDS ORDERED: PROPOFOL 10 MG/ML, 50ML ONE (12:47)
[2018-02-11] MEDS: DOPAMINE/D5W PMX 250 ML IV SCH (13:36)
[2018-02-11] MEDS ORDERED: SODIUM CHLORIDE 0.9%, 500ML IVBOLUS ONE (13:45)
[2018-02-11] MEDS ORDERED: TPN PER PHARMACY MC PRN (14:00)
[2018-02-11 14:04] LABS: T4 (THYROXINE) 8.6 mcg/dL (4.5-12.1); THYROID STIMULATING HORMONE 4.33 mIU/L (0.358-3.740)
[2018-02-11] MEDS ORDERED: FOLIC ACID 1 MG, THIAMINE 200 MG, MVI ADULT 10 ML in DEXTROSE 5% 1,000 ML IV SCH (15:00)
[2018-02-11] MEDS ORDERED: DEXTROSE 10% 500 ML IV PRN (17:00)
[2018-02-11] MEDS ORDERED: AMINO ACID 10% IV SCH (17:00)
[2018-02-11] MEDS ORDERED: FAT EMUL IV SCH (17:00)
[2018-02-11] MEDS ORDERED: [UNRECOGNIZED DRUG - OTHER] IV SCH (17:00)
[2018-02-11] MEDS ORDERED: SMOF TPN IV SCH (17:00)
[2018-02-11] MEDS ORDERED: FILTER, DISP 1.2 MICRON FOR TPN/PVN IV PRN (17:00)
[2018-02-11] MEDS ORDERED: DEXTROSE 70% IV SCH (17:00)
[2018-02-11] MEDS: MORPHINE SULFATE 4 MG/ML, 1ML IVPush PRN ×2 (17:13→21:34)
[2018-02-11] MEDS ORDERED: DEXTROSE 5% 1,000 ML IV SCH (17:29)
[2018-02-11] MEDS: INSULIN REGULAR MEDIUM DOSE Q6H X 48HRS SQ-INSULIN SCH (21:00)
[2018-02-11] MEDS: DEXTROSE 50%, 50ML SYRINGE IVPush PRN (21:19)
[2018-02-12] MEDS: MORPHINE SULFATE 4 MG/ML, 1ML IVPush PRN ×2 (01:08→05:10)
[2018-02-12] MEDS: INSULIN REGULAR MEDIUM DOSE Q6H X 48HRS SQ-INSULIN SCH ×4 (03:00→21:00)
[2018-02-12] MEDS: DEXTROSE 50%, 50ML SYRINGE IVPush PRN (03:26)
[2018-02-12 03:47] LABS: ALBUMIN 2.8 g/dL (3.4-5.0); ANION GAP 7 mmol/L (5-15); CALCIUM 8.2 mg/dL (8.5-10.1); CHLORIDE 114 mmol/L (98-107); CREATININE 1.38 mg/dL (0.7-1.3); TRIGLYCERIDES 50 mg/dL (50-200)
[2018-02-12 03:52] LABS: PREALBUMIN 16.6 mg/dL (20.0-40.0)
[2018-02-12 04:00] LABS: MEAN CORPUSCULAR HEMOGLOBIN 25.6 pg (27.5-34.5); MEAN CORPUSCULAR HGB CONC 31.4 g/dL (33.2-36.2); MEAN CORPUSCULAR VOLUME 81.3 fL (81-97); RED BLOOD COUNT 4.41 x10^6/uL (4.38-5.82); RED CELL DISTRIBUTION WIDTH 22.3 % (9.4-14.8)
[2018-02-12 04:19] LABS: MD YES; MEAN PLATELET VOLUME 8.4 fL (7.4-10.4); PLATELET COUNT 176 x10^3/uL (130-400)
[2018-02-12 04:22] LABS: BAND#(MANUAL) 0.04 x10^3/uL; BANDS%(MANUAL) 1 % (0-7); LYMPH#(MANUAL) 1.01 x10^3/uL (1-3.4); LYMPHS% (MANUAL) 23 % (22-44); MONOS#(MANUAL) 0.18 x10^3/uL (0.3-2.7); MONOS% (MANUAL) 4 % (2-9); SEG#(MANUAL) 3.17 x10^3/uL (1.8-6.8); SEGS% (MANUAL) 72 % (42-75)
[2018-02-12 04:23] LABS: <PLATELET ESTIMATE> ADEQUATE; <PLT MORPHOLOGY> NORMAL PLT MORPH; ANISOCYTOSIS 1+
[2018-02-12] MEDS: DEXTROSE 5% 1,000 ML IV SCH (06:23)
[2018-02-12] MEDS: PANTOPRAZOLE 40 MG IV IVPush SCH (08:57)
[2018-02-12] MEDS ORDERED: ENOXAPARIN 30 MG/0.3 ML ONE (13:58)
[2018-02-12] MEDS ORDERED: ENOXAPARIN 30 MG/0.3 ML SQ ONE (14:00)
[2018-02-12] MEDS: FOLIC ACID 1 MG, THIAMINE 200 MG, MVI ADULT 10 ML in DEXTROSE 5% 1,000 ML IV SCH (16:21)
[2018-02-12] MEDS: DOPAMINE/D5W PMX 250 ML IV SCH (16:22)
[2018-02-12] MEDS ORDERED: DEXTROSE 70% IV SCH ×2 (17:00)
[2018-02-12] MEDS ORDERED: AMINO ACID 10% IV SCH ×2 (17:00)
[2018-02-12] MEDS ORDERED: FILTER, DISP 1.2 MICRON FOR TPN/PVN IV PRN (17:00)
[2018-02-12] MEDS ORDERED: SMOF TPN IV SCH ×2 (17:00)
[2018-02-12] MEDS ORDERED: [UNRECOGNIZED DRUG - OTHER] IV SCH (17:00)
[2018-02-12] MEDS ORDERED: [UNRECOGNIZED DRUG - OTHER] IV SCH (17:00)
[2018-02-12] MEDS ORDERED: FAT EMUL IV SCH ×2 (17:00)
[2018-02-13] MEDS: DEXTROSE 5% 1,000 ML IV SCH (00:52)
[2018-02-13] MEDS: INSULIN REGULAR MEDIUM DOSE Q6H X 48HRS SQ-INSULIN SCH ×3 (03:00→15:00)
[2018-02-13 05:34] LABS: ALANINE AMINOTRANSFERASE 22 U/L (12-78); ALBUMIN 2.3 g/dL (3.4-5.0); ANION GAP 9 mmol/L (5-15); CALCIUM 7.6 mg/dL (8.5-10.1); CHLORIDE 105 mmol/L (98-107); CREATININE 0.91 mg/dL (0.7-1.3)
[2018-02-13 05:36] LABS: MEAN CORPUSCULAR HEMOGLOBIN 25.8 pg (27.5-34.5); MEAN CORPUSCULAR VOLUME 80.7 fL (81-97); MEAN PLATELET VOLUME 8.9 fL (7.4-10.4); PLATELET COUNT 142 x10^3/uL (130-400); RED BLOOD COUNT 3.88 x10^6/uL (4.38-5.82); RED CELL DISTRIBUTION WIDTH 22.4 % (9.4-14.8)
[2018-02-13 05:37] LABS: ALKALINE PHOSPHATASE 48 U/L (45-117); TOTAL PROTEIN 5.3 g/dL (6.4-8.2)
[2018-02-13 06:06] LABS: BASOPHILS # (AUTO) 0.01 x10^3/uL (0-0.1); BASOPHILS % (AUTO) 0 % (0-1); EOSINOPHILS # (AUTO) 0.04 x10^3/uL (0-0.4); EOSINOPHILS % (AUTO) 1 % (1-7); LYMPHOCYTES # (AUTO) 0.66 x10^3/uL (1-3.4); LYMPHOCYTES % (AUTO) 24 % (22-44); MD SCAN; MONOCYTES # (AUTO) 0.24 x10^3/uL (0.2-0.8); MONOCYTES % (AUTO) 9 % (2-9); NEUTROPHILS # (AUTO) 1.85 x10^3/uL (1.8-6.8); NEUTROPHILS % (AUTO) 66 % (42-75)
[2018-02-13] MEDS ORDERED: SODIUM CHLORIDE 0.9%, 500ML IVBOLUS ONE (06:30)
[2018-02-13] MEDS: PANTOPRAZOLE 40 MG IV IVPush SCH (08:53)
[2018-02-13] MEDS ORDERED: ONDANSETRON 2MG/ML, 2ML ONE (14:04)
[2018-02-13] MEDS ORDERED: ROCURONIUM 10 MG/ML,10ML ONE (14:04)
[2018-02-13] MEDS ORDERED: SUCCINYLCHOLINE 20 MG/ML, 10ML ONE (14:04)
[2018-02-13] MEDS ORDERED: PROPOFOL 10 MG/ML, 20ML ONE (14:04)
[2018-02-13] MEDS ORDERED: DEXAMETHASONE 4 MG/ML, 1ML ONE (14:04)
[2018-02-13] MEDS ORDERED: FENTANYL PF 100 MCG/2ML ONE (14:31)
[2018-02-13] MEDS: FOLIC ACID 1 MG, THIAMINE 200 MG, MVI ADULT 10 ML in DEXTROSE 5% 1,000 ML IV SCH (16:17)
[2018-02-13] MEDS ORDERED: SMOF TPN IV SCH (17:00)
[2018-02-13] MEDS ORDERED: FAT EMUL IV SCH (17:00)
[2018-02-13] MEDS ORDERED: DEXTROSE 70% IV SCH (17:00)
[2018-02-13] MEDS ORDERED: FILTER, DISP 1.2 MICRON FOR TPN/PVN IV PRN (17:00)
[2018-02-13] MEDS ORDERED: [UNRECOGNIZED DRUG - OTHER] IV SCH (17:00)
[2018-02-13] MEDS ORDERED: AMINO ACID 10% IV SCH (17:00)
[2018-02-13] MEDS: MORPHINE SULFATE 4 MG/ML, 1ML IVPush PRN (20:11)
[2018-02-14] MEDS: DEXTROSE 5% 1,000 ML IV SCH (00:37)
[2018-02-14] MEDS ORDERED: INSULIN REGULAR MEDIUM DOSE QDAY SQ-INSULIN SCH (09:00)
== END 2018-02-14 02:31 | disposition left against medical advice (07) | DRG 682 ==
LOC: ED 11:26 → EDIP 14:17 → CCU 17:26
PROVIDERS: ADMIT Internal Medicine; ATTEND Internal Medicine
PROC: 0D738DZ Dilation of Lower Esophagus with Intraluminal Device, Via Natural or Artificial Opening Endoscopic (ICD-10-PCS; principal; 2018-02-10)
PROC: 02HV33Z Insertion of Infusion Device into Superior Vena Cava, Percutaneous Approach (ICD-10-PCS; 2018-02-11)
PROC: B548ZZA Ultrasonography of Superior Vena Cava, Guidance (ICD-10-PCS; 2018-02-11)
DX: N17.0 Acute kidney failure with tubular necrosis (principal); E43 Unspecified severe protein-calorie malnutrition; E87.0 Hyperosmolality and hypernatremia; E87.2 Acidosis; Z68.1 Body mass index [BMI] 19.9 or less, adult; K22.2 Esophageal obstruction; D50.9 Iron deficiency anemia, unspecified; D63.8 Anemia in other chronic diseases classified elsewhere; E83.39 Other disorders of phosphorus metabolism; E86.0 Dehydration; F17.200 Nicotine dependence, unspecified, uncomplicated; Z72.89 Other problems related to lifestyle; I11.9 Hypertensive heart disease without heart failure; I51.7 Cardiomegaly; J98.2 Interstitial emphysema; K21.9 Gastro-esophageal reflux disease without esophagitis; K22.8 Other specified diseases of esophagus; R62.7 Adult failure to thrive; Z80.9 Family history of malignant neoplasm, unspecified; Z85.028 Personal history of other malignant neoplasm of stomach; Z86.19 Personal history of other infectious and parasitic diseases; Z87.11 Personal history of peptic ulcer disease; Z91.19 Patient's noncompliance with other medical treatment and regimen; Z53.21 Procedure and treatment not carried out due to patient leaving prior to being seen by health care provider; F12.90 Cannabis use, unspecified, uncomplicated; F11.90 Opioid use, unspecified, uncomplicated; R00.1 Bradycardia, unspecified; F15.10 Other stimulant abuse, uncomplicated; Z79.899 Other long term (current) drug therapy
CPT/HCPCS: 36415; 36569; 71045; 71250; 74022; 74176; 74220; 76001; 76770; 76937; 77001; 80053; 80069; 80307; 81003; 82043; 82140; 82436; 82550; 82570; 82728; 82947; 82962; 83036; 83540; 83550; 83605; 83690; 83735; 83930; 83935; 84100; 84133; 84134; 84156; 84300; 84436; 84443; 84478; 84481; 84484; 85025; 85610; 85730; 86803; 87081; 87806; 93005; 93306; 96361; 96374; 96375; 99285; G0378; J0610; J1100; J1170; J1265; J1650; J1815; J2405; J2704; J3010; J3411; J3475; J7070; Q9967; C1751; C9113; G0475; J0330; J2270; J3420; J7030; J7040

== ENCOUNTER 2018-02-15 04:20 | Inpatient (IN) | payer MEDICAID, OTHER ==
[~2018-02-15] VITALS: Ht 177.8 cm; Wt 48.9 kg
[~2018-02-15 04:20] MED LIST changes: +CALC625T13 PO; +HYDR12.58 PO; +ONDA4TAB13 SL
[2018-02-15 05:20] LABS: INTERNATIONAL NORMALIZED RATIO 0.98 (0.93-1.1); PROTHROMBIN TIME 10.2 Seconds (9.6-11.5)
[2018-02-15 05:25] LABS: ALBUMIN 3.1 g/dL (3.4-5.0); ANION GAP 9 mmol/L (5-15); CALCIUM 8.7 mg/dL (8.5-10.1); CHLORIDE 109 mmol/L (98-107)
[2018-02-15 05:30] LABS: ALANINE AMINOTRANSFERASE 56 U/L (12-78); ALKALINE PHOSPHATASE 86 U/L (45-117); BILIRUBIN,TOTAL 1.4 mg/dL (0.2-1.0); CREATININE 1.49 mg/dL (0.7-1.3); TOTAL PROTEIN 6.5 g/dL (6.4-8.2); TROPONIN I < 0.015 ng/mL (0.000-0.045)
[2018-02-15] MEDS ORDERED: SODIUM CHLORIDE FLUSH 10ML SYR IVF ONE (05:30)
[2018-02-15 05:41] LABS: MEAN CORPUSCULAR HEMOGLOBIN 25.6 pg (27.5-34.5); MEAN CORPUSCULAR HGB CONC 31.9 g/dL (33.2-36.2); MEAN CORPUSCULAR VOLUME 80.3 fL (81-97); MEAN PLATELET VOLUME 8.5 fL (7.4-10.4); PLATELET COUNT 136 x10^3/uL (130-400); RED BLOOD COUNT 4.22 x10^6/uL (4.38-5.82); RED CELL DISTRIBUTION WIDTH 22.7 % (9.4-14.8)
[2018-02-15 06:04] LABS: BASOPHILS # (AUTO) 0.01 x10^3/uL (0-0.1); BASOPHILS % (AUTO) 0 % (0-1); EOSINOPHILS # (AUTO) 0.02 x10^3/uL (0-0.4); EOSINOPHILS % (AUTO) 0 % (1-7); LYMPHOCYTES # (AUTO) 0.58 x10^3/uL (1-3.4); LYMPHOCYTES % (AUTO) 8 % (22-44); MD SCAN; MONOCYTES # (AUTO) 0.48 x10^3/uL (0.2-0.8); MONOCYTES % (AUTO) 6 % (2-9); NEUTROPHILS # (AUTO) 6.68 x10^3/uL (1.8-6.8); NEUTROPHILS % (AUTO) 86 % (42-75)
[2018-02-15] MEDS ORDERED: SODIUM CHLORIDE 0.9% 1,000 ML IV ONE (06:50)
[2018-02-15] MEDS ORDERED: SODIUM CHLORIDE FLUSH 10ML SYR IVF PRN (07:00)
[2018-02-15] MEDS ORDERED: D5%-0.45% NACL 1,000 ML IV SCH (08:41)
[2018-02-15] MEDS ORDERED: PANTOPRAZOLE 40 MG IV IVPush SCH (09:00)
[2018-02-15] MEDS ORDERED: NICOTINE 14MG/24 HR PATCH.TD24 TD SCH (09:00)
[2018-02-15] MEDS ORDERED: ONDANSETRON 2MG/ML, 2ML IVPush PRN (09:00)
[2018-02-15] MEDS ORDERED: ENOXAPARIN 30 MG/0.3 ML SQ SCH (09:00)
[2018-02-15] MEDS ORDERED: PHARMACY MAY ADJ FOR RENAL FX MC PRN (09:00)
[2018-02-15 09:13] LABS: PREALBUMIN 18.5 mg/dL (20.0-40.0); THYROID STIMULATING HORMONE 1.99 mIU/L (0.358-3.740)
[2018-02-15 11:40] LABS: MICROSCOPIC AUTO
[2018-02-15 11:41] LABS: CULTURE INDICATED? YES
[2018-02-15 11:43] LABS: AMPHETAMINE SCREEN, URINE Positive (Negative); BARBITURATE SCREEN, URINE Negative (Negative); BENZODIAZEPINE SCREEN, URINE Negative (Negative); CANNABINOID SCREEN, URINE Positive (Negative); COCAINE SCREEN, URINE Negative (Negative); METHADONE SCREEN, URINE Negative (Negative); OPIATE SCREEN, URINE Positive (Negative)
[2018-02-15 12:40] VITALS: BP 135/79
== END 2018-02-15 17:27 | disposition left against medical advice (07) | DRG 682 ==
LOC: ED 05:03 → EDIP 06:54 → 4EST 07:49
PROVIDERS: ADMIT Internal Medicine; ATTEND Internal Medicine
DX: N17.0 Acute kidney failure with tubular necrosis (principal); E43 Unspecified severe protein-calorie malnutrition; R64 Cachexia; Z68.1 Body mass index [BMI] 19.9 or less, adult; R62.7 Adult failure to thrive; R29.6 Repeated falls; I10 Essential (primary) hypertension; F17.200 Nicotine dependence, unspecified, uncomplicated; F15.10 Other stimulant abuse, uncomplicated; D50.0 Iron deficiency anemia secondary to blood loss (chronic); E16.2 Hypoglycemia, unspecified; Z53.21 Procedure and treatment not carried out due to patient leaving prior to being seen by health care provider; Z85.028 Personal history of other malignant neoplasm of stomach; Z80.9 Family history of malignant neoplasm, unspecified; Z91.19 Patient's noncompliance with other medical treatment and regimen; Z87.11 Personal history of peptic ulcer disease; Z79.899 Other long term (current) drug therapy
CPT/HCPCS: 36415; 71045; 80053; 80307; 81001; 83605; 83690; 83735; 84100; 84134; 84443; 84484; 85025; 85610; 87086; 93005; 99285; G0378; J1650; C9113; J7030

== ENCOUNTER 2018-09-21 05:56 | Inpatient (IN) | payer OTHER ==
[~2018-09-21] VITALS: Ht 180.3 cm; Wt 54.8 kg
[~2018-09-21 05:56] MED LIST changes: +CLAR-36 PO; -CLAR500T PO; -HYDR12.58 PO; +HYDROCHLOROTH12.5 MG PO
[2018-09-21] MEDS ORDERED: MORPHINE SULFATE 4 MG/ML, 1ML ONE (06:08)
[2018-09-21] MEDS ORDERED: NITROGLYCERIN/D5W PMX 250 ML ONE (06:09)
[2018-09-21] MEDS ORDERED: ONDANSETRON 2MG/ML, 2ML ONE (06:12)
[2018-09-21] MEDS ORDERED: SODIUM CHLORIDE FLUSH 10ML SYR IVF ONE (06:30)
[2018-09-21] MEDS ORDERED: PLEASE ENTER ALLERGIES MC SCH (06:30)
[2018-09-21] MEDS ORDERED: ONDANSETRON 2MG/ML, 2ML IVPush ONE (06:30)
[2018-09-21] MEDS ORDERED: NITROGLYCERIN/D5W PMX 250 ML IV PRN (06:30)
[2018-09-21] MEDS ORDERED: MORPHINE SULFATE 4 MG/ML, 1ML IVPush PRN (06:30)
[2018-09-21 06:38] LABS: BASOPHILS # (AUTO) 0.01 x10^3/uL (0-0.1); BASOPHILS % (AUTO) 0 % (0-1); EOSINOPHILS % (AUTO) 0 % (1-7); LYMPHOCYTES # (AUTO) 0.74 x10^3/uL (1-3.4); LYMPHOCYTES % (AUTO) 6 % (22-44); MD NO; MEAN CORPUSCULAR HGB CONC 32.1 g/dL (33.2-36.2); MEAN CORPUSCULAR VOLUME 99.8 fL (81-97); MEAN PLATELET VOLUME 7.2 fL (7.4-10.4); MONOCYTES % (AUTO) 2 % (2-9); NEUTROPHILS % (AUTO) 92 % (42-75); PLATELET COUNT 448 x10^3/uL (130-400); RED BLOOD COUNT 4.32 x10^6/uL (4.38-5.82); RED CELL DISTRIBUTION WIDTH 15.3 % (9.4-14.8)
--- NOTE | 2018-09-21 06:39 | NUR ---
BOTH ARM BP IS SAME MD WAS NOTIFIED
[2018-09-21] MEDS ORDERED: HYDROmorphone 1 MG/ML, 1ML VIAL ONE ×2 (06:40→07:11)
[2018-09-21] MEDS: HYDROmorphone 2 MG/ML, 1ML IVPush PRN ×2 (06:43→07:33)
[2018-09-21] MEDS ORDERED: METOPROLOL 1 MG/ML, 5ML ONE ×2 (06:44→07:26)
[2018-09-21] MEDS: METOPROLOL 1 MG/ML, 5ML IVPush PRN ×2 (06:47→07:31)
[2018-09-21 06:51] LABS: ALANINE AMINOTRANSFERASE 24 U/L (12-78); ALBUMIN 3.4 g/dL (3.4-5.0); ANION GAP 9 mmol/L (5-15); CALCIUM 9.1 mg/dL (8.5-10.1); CHLORIDE 103 mmol/L (98-107); CREATININE 0.98 mg/dL (0.7-1.3)
[2018-09-21 06:55] LABS: ALKALINE PHOSPHATASE 101 U/L (45-117); BILIRUBIN,TOTAL 0.8 mg/dL (0.2-1.0); TOTAL PROTEIN 7.7 g/dL (6.4-8.2); TROPONIN I < 0.015 ng/mL (0.000-0.045)
--- NOTE | 2018-09-21 07:02 | NUR ---
RECEIVED REPORT FROM DARCI RN, PLAN OF CARE DISCUSSED. PT C/O OF SEVERE CHEST PAIN, EKG COMPLETED TO DR. NAGEL. PT TO CT SCAN WITH 2 RNS
--- NOTE | 2018-09-21 07:03 | NUR ---
pt presents via [facility] d/t severe chest pain . remsa given 325mg of asa 4mg zofran, NTGx1, but bp is still up to 180/120 when arrival in rm 16. pt was squeezing chest d/t chest pain . dr jensen at bed side ekg was done but it wasnt good ekg d/t pt's unstable movement d/t pain . ntg gtt was started with 30mcg/min bp was still elevated given morphine 4mg, 4mg of zofran, 1mg of dilaudid, 5mg of metoprolol. bp 160/111 md was notified . re ekg done showed to dr jensen. 2 big large bore iv inplaced. given report to batsheva rothman and batsheva nichols day shift. pt is still alert answer properly pt stated pain is still there in the chest.
--- NOTE | 2018-09-21 07:15 | NUR ---
I AM ASSUMING CARE OF THIS PT FROM SORAYA (ROSELINE) AT THIS TIME. SBAR REPORT WAS EXCHANGED AT THE BEDSIDE.
--- NOTE | 2018-09-21 07:15 | NUR ---
REPORT TO YULIYA PLAN OF CARE DISCUSSED
--- NOTE | 2018-09-21 07:16 | NUR ---
PT TO KATLIN W FRANCISCO, AND MYSELF
--- NOTE | 2018-09-21 07:45 | NUR ---
PT FEELING SIGNIFICANT RELIEF FROM PAIN MEDS. HTN IS IMPROVED, AND VS ARE STABILIZING. I WILL CONTINUE TO MONITOR AND TREAT ORDERED, WELL PRN WHILE AWAITING A ROOM ASSIGNMENT FOR ADMISSION.
--- NOTE | 2018-09-21 08:04 | NUR ---
PT TO AND FROM [facility] W TECH AND MYSELF. HE TOLOERATED THE IMAGING AND TRANSPORT WELL.
--- NOTE | 2018-09-21 08:06 | NUR ---
ATTEMPTED REPORT TO CCU. AWAITING CALLBACK.
--- NOTE | 2018-09-21 08:32 | NUR ---
VERBAL SBAR REPORT EXCHANGED Ann ODOM (ROSELINE) ON THE CCU. WE WILL BEGIN TO PREPARE FOR TRANSPORT AT THIS TIME.
[2018-09-21] MEDS ORDERED: OMNIPAQUE 350 MG/ML, 100ML BOTTLE ONE (09:00)
[2018-09-21] MEDS ORDERED: ENALAPRILAT 1.25 MG/ML, 2ML IVPush PRN (09:30)
[2018-09-21] MEDS ORDERED: ACETAMINOPHEN 325 MG TABLET PO PRN (09:30)
[2018-09-21] MEDS ORDERED: LABETALOL 5MG/ML, 20ML IVPush PRN (09:30)
[2018-09-21] MEDS ORDERED: ONDANSETRON 2MG/ML, 2ML IVPush PRN (09:30)
[2018-09-21 09:45] LABS: MICROSCOPIC AUTO
[2018-09-21 09:46] LABS: CULTURE INDICATED? NO
[2018-09-21 10:00] LABS: AMPHETAMINE SCREEN, URINE Positive (Negative); BARBITURATE SCREEN, URINE Negative (Negative); BENZODIAZEPINE SCREEN, URINE Negative (Negative); CANNABINOID SCREEN, URINE Positive (Negative); COCAINE SCREEN, URINE Negative (Negative); METHADONE SCREEN, URINE Negative (Negative); OPIATE SCREEN, URINE Positive (Negative)
[2018-09-21 10:06] LABS: HEMOGLOBIN A1C 4.8 % (4.2-6.3)
[2018-09-21] MEDS: OXYcodone IR 5MG TABLET PO PRN ×2 (11:21→17:38)
[2018-09-21] MEDS: DILTIAZEM 120 MG CAP.ER.12H PO SCH ×2 (11:22→21:47)
[2018-09-21 12:21] LABS: TROPONIN I < 0.015 ng/mL (0.000-0.045)
[2018-09-21] MEDS: NICOTINE 21 MG/24 HR PATCH.TD24 TD SCH (17:38)
[2018-09-21] MEDS: PANTOPRAZOLE 40 MG IV IVPush SCH (17:38)
[2018-09-21] MEDS: ENOXAPARIN 40 MG/0.4 ML SQ SCH (17:38)
[2018-09-21] MEDS: LACTULOSE 10 GM/15 ML UDC PO SCH (21:47)
[2018-09-22] MEDS: SODIUM CHLORIDE 0.9% 1,000 ML IV SCH ×2 (00:48→13:44)
[2018-09-22 04:00] VITALS: BP 102/72
[2018-09-22 04:31] LABS: MEAN CORPUSCULAR HEMOGLOBIN 30.8 pg (27.5-34.5); MEAN CORPUSCULAR HGB CONC 31.3 g/dL (33.2-36.2); MEAN CORPUSCULAR VOLUME 98.4 fL (81-97); MEAN PLATELET VOLUME 7.3 fL (7.4-10.4); PLATELET COUNT 365 x10^3/uL (130-400); RED BLOOD COUNT 3.61 x10^6/uL (4.38-5.82); RED CELL DISTRIBUTION WIDTH 14.8 % (9.4-14.8)
[2018-09-22] MEDS: PANTOPRAZOLE 40 MG IV IVPush SCH ×3 (04:37→23:51)
[2018-09-22 04:43] LABS: ALBUMIN 2.6 g/dL (3.4-5.0); ANION GAP 7 mmol/L (5-15); CALCIUM 8.2 mg/dL (8.5-10.1); CHLORIDE 110 mmol/L (98-107)
[2018-09-22 04:46] LABS: ALANINE AMINOTRANSFERASE 16 U/L (12-78); ALKALINE PHOSPHATASE 68 U/L (45-117); BILIRUBIN,TOTAL 0.7 mg/dL (0.2-1.0); CREATININE 1.19 mg/dL (0.7-1.3); TOTAL PROTEIN 5.9 g/dL (6.4-8.2)
[2018-09-22 05:47] LABS: BASOPHILS # (AUTO) 0.09 x10^3/uL (0-0.1); BASOPHILS % (AUTO) 1 % (0-1); EOSINOPHILS # (AUTO) 0.02 x10^3/uL (0-0.4); EOSINOPHILS % (AUTO) 0 % (1-7); LYMPHOCYTES % (AUTO) 11 % (22-44); MD SCAN; MONOCYTES # (AUTO) 1.18 x10^3/uL (0.2-0.8); MONOCYTES % (AUTO) 8 % (2-9); NEUTROPHILS # (AUTO) 12.37 x10^3/uL (1.8-6.8); NEUTROPHILS % (AUTO) 81 % (42-75)
[2018-09-22 08:52] VITALS: BP 111/74
[2018-09-22] MEDS: LACTULOSE 10 GM/15 ML UDC PO SCH ×2 (09:00→20:48)
[2018-09-22] MEDS: DILTIAZEM 120 MG CAP.ER.12H PO SCH ×2 (09:06→20:47)
[2018-09-22] MEDS: NICOTINE 21 MG/24 HR PATCH.TD24 TD SCH (09:06)
[2018-09-22 13:14] VITALS: BP 106/76
[2018-09-22] MEDS ORDERED: PROPOFOL 10 MG/ML, 20ML ONE (15:07)
[2018-09-22] MEDS ORDERED: ONDANSETRON 2MG/ML, 2ML IV PRN (16:00)
[2018-09-22] MEDS ORDERED: OXYcodone 5 MG/5 ML ORAL.SOL UDC PO PRN (16:00)
[2018-09-22] MEDS ORDERED: FENTANYL PF 100 MCG/2ML IV PRN (16:00)
[2018-09-22] MEDS: ENOXAPARIN 40 MG/0.4 ML SQ SCH (17:41)
[2018-09-22] MEDS: SUCRALFATE 1 GM/10 ML UDC PO SCH ×2 (17:41→20:47)
[2018-09-22 19:48] VITALS: BP 112/67
[2018-09-23] MEDS: OXYcodone IR 5MG TABLET PO PRN ×3 (00:02→21:37)
[2018-09-23 01:50] VITALS: BP 115/71
[2018-09-23] MEDS: SUCRALFATE 1 GM/10 ML UDC PO SCH ×4 (05:49→21:37)
[2018-09-23] MEDS: PANTOPRAZOLE GRAN. PKT 40 MG PO SCH (05:50)
[2018-09-23 06:01] LABS: BASOPHILS # (AUTO) 0.04 x10^3/uL (0-0.1); BASOPHILS % (AUTO) 0 % (0-1); EOSINOPHILS # (AUTO) 0.05 x10^3/uL (0-0.4); EOSINOPHILS % (AUTO) 0 % (1-7); LYMPHOCYTES # (AUTO) 1.45 x10^3/uL (1-3.4); LYMPHOCYTES % (AUTO) 12 % (22-44); MD NO; MEAN CORPUSCULAR HEMOGLOBIN 32.1 pg (27.5-34.5); MEAN CORPUSCULAR HGB CONC 31.9 g/dL (33.2-36.2); MEAN CORPUSCULAR VOLUME 100.7 fL (81-97); MEAN PLATELET VOLUME 7.6 fL (7.4-10.4); MONOCYTES # (AUTO) 1.04 x10^3/uL (0.2-0.8); MONOCYTES % (AUTO) 9 % (2-9); NEUTROPHILS # (AUTO) 9.31 x10^3/uL (1.8-6.8); NEUTROPHILS % (AUTO) 78 % (42-75); PLATELET COUNT 317 x10^3/uL (130-400); RED BLOOD COUNT 2.92 x10^6/uL (4.38-5.82); RED CELL DISTRIBUTION WIDTH 15.2 % (9.4-14.8)
[2018-09-23 07:06] VITALS: BP 96/60
[2018-09-23] MEDS ORDERED: SODIUM CHLORIDE 0.9% 1,000 ML IV SCH (07:30)
[2018-09-23] MEDS: NICOTINE 21 MG/24 HR PATCH.TD24 TD SCH (08:42)
[2018-09-23] MEDS: DILTIAZEM 120 MG CAP.ER.12H PO SCH ×2 (08:42→21:37)
[2018-09-23] MEDS: LACTULOSE 10 GM/15 ML UDC PO SCH ×2 (08:42→21:37)
[2018-09-23 10:51] LABS: TROPONIN I < 0.015 ng/mL (0.000-0.045)
[2018-09-23] MEDS: ENOXAPARIN 40 MG/0.4 ML SQ SCH (16:00)
[2018-09-23] MEDS: PANTOPRAZOLE 40 MG IV IVPush SCH (16:00)
[2018-09-23 20:09] VITALS: BP 100/53
[2018-09-23 21:35] VITALS: BP 106/64
[2018-09-24 03:58] VITALS: BP 120/68
[2018-09-24] MEDS: PANTOPRAZOLE 40 MG IV IVPush SCH (04:00)
[2018-09-24] MEDS: PANTOPRAZOLE GRAN. PKT 40 MG PO SCH (05:34)
== END 2018-09-24 06:50 | disposition left against medical advice (07) | DRG 381 ==
LOC: ED 07:37 → MERGE 07:38 → EDIP 07:38 → ED 07:53 → CCU 08:54 → 5SO 09-22 06:31 → 4WST 09-22 18:41
PROVIDERS: ADMIT Internal Medicine; ATTEND Internal Medicine
PROC: 0DB68ZX Excision of Stomach, Via Natural or Artificial Opening Endoscopic, Diagnostic (ICD-10-PCS; 2018-09-22)
PROC: 0DB48ZX Excision of Esophagogastric Junction, Via Natural or Artificial Opening Endoscopic, Diagnostic (ICD-10-PCS; principal; 2018-09-22 16:00)
DX: K31.1 Adult hypertrophic pyloric stenosis (principal); I16.1 Hypertensive emergency; D17.9 Benign lipomatous neoplasm, unspecified; D72.828 Other elevated white blood cell count; D75.89 Other specified diseases of blood and blood-forming organs; E87.6 Hypokalemia; I10 Essential (primary) hypertension; K21.0 Gastro-esophageal reflux disease with esophagitis; K29.70 Gastritis, unspecified, without bleeding; K44.9 Diaphragmatic hernia without obstruction or gangrene; Z76.5 Malingerer [conscious simulation]; Z82.49 Family history of ischemic heart disease and other diseases of the circulatory system; Z83.3 Family history of diabetes mellitus; Z87.11 Personal history of peptic ulcer disease; Z87.891 Personal history of nicotine dependence; Z91.19 Patient's noncompliance with other medical treatment and regimen
CPT/HCPCS: 36415; 71045; 71275; 74176; 80053; 80307; 81001; 83036; 83605; 83690; 84443; 84484; 85025; 87081; 88305; 88312; 88342; 93005; 93306; 96374; 96375; 96376; 99291; G0378; J1170; J1650; J2405; J2704; Q9967; C9113; J2270; J7030; J7050

== ENCOUNTER 2018-10-23 14:39 | Inpatient (IN) | payer MEDICAID ==
[~2018-10-23] VITALS: Ht 180.3 cm; Wt 64.7 kg
[2018-10-26 12:36] VITALS: BP 137/90
== END 2018-10-26 14:21 | disposition left against medical advice (07) | DRG 391 ==
LOC: ED 17:26 → EDIP 18:24 → 3NE 19:39
PROVIDERS: ADMIT Family Medicine; ATTEND Family Medicine
PROC: 0D748ZZ Dilation of Esophagogastric Junction, Via Natural or Artificial Opening Endoscopic (ICD-10-PCS; principal; 2018-10-26)
DX: K22.2 Esophageal obstruction (principal); E43 Unspecified severe protein-calorie malnutrition; N17.9 Acute kidney failure, unspecified; Z68.1 Body mass index [BMI] 19.9 or less, adult; K86.1 Other chronic pancreatitis; K44.9 Diaphragmatic hernia without obstruction or gangrene; K21.0 Gastro-esophageal reflux disease with esophagitis; F17.210 Nicotine dependence, cigarettes, uncomplicated; N18.9 Chronic kidney disease, unspecified; B96.81 Helicobacter pylori [H. pylori] as the cause of diseases classified elsewhere; F15.10 Other stimulant abuse, uncomplicated; K29.70 Gastritis, unspecified, without bleeding; E86.0 Dehydration; Z53.21 Procedure and treatment not carried out due to patient leaving prior to being seen by health care provider; Z91.19 Patient's noncompliance with other medical treatment and regimen; Z87.19 Personal history of other diseases of the digestive system; Z85.028 Personal history of other malignant neoplasm of stomach
CPT/HCPCS: 36415; 74220; 76000; 96361; 99291; J3490; 71045; 80048; 80053; 80307; 82040; 83690; 83735; 84100; 84484; 85025; 93005; 96374; G0378; J2405; J2704; J3475; C1725; C1769; J2270; J7120